=== PATIENT | male | born 1970 | race Caucasian/White ===

== ENCOUNTER → 2020-07-26 | Day surgery (SDC) | payer MEDICARE ==
[2020-07-22 11:32] LABS: BASOPHILS # (AUTO) 0.1 (0.0-0.1); BASOPHILS % 0.9 % (0.0-1.0); EOSINOPHILS # (AUTO) 0.5 (0.0-0.4); EOSINOPHILS % 5.2 % (0.0-6.0); HEMATOCRIT 44.2 % (38.2-49.6); HEMOGLOBIN 15.3 g/dL (14.0-18.0); LYMPHOCYTES # (AUTO) 3.1 (1.0-3.2); LYMPHOCYTES % 36.6 % (18.0-39.1); MEAN CORPUSCULAR HEMOGLOBIN 31.7 pg (28-32); MEAN CORPUSCULAR HGB CONC 34.6 g/dL (31-35); MEAN CORPUSCULAR VOLUME 91.5 fL (81-99); MONOCYTES # (AUTO) 0.8 (0.2-0.8); MONOCYTES % 8.8 % (4.4-11.3); NEUTROPHILS # (AUTO) 4.1 (2.1-6.9); NEUTROPHILS % 48.2 % (38.7-80.0); PLATELET COUNT 287 x10e3/uL (140-360); RED BLOOD COUNT 4.83 x10e6/uL (4.3-5.7)
[~2020-07-26] MED LIST: ALFUZOSIN HCL10 MG PO; ATORVASTATIN CA20 MG PO; B COMPLEX1 EACH PO; BUSPIRONE HCL5 MG PO; CIALIS5 MG PO; CINNAMON500 MG PO; DICYCLOMINE HCL10 MG PO; FAMOTIDINE20 MG PO; FENOFIBRATE145 MG PO; FENTANYL CITRATE/PF 100MCG/2 ML INJ ONE; FINASTERIDE5 MG PO; GENVOYA TABLET1 EACH PO; HYDROXYZINE HCL25 MG PO; JARDIANCE25 MG PO; LIDOCAINE HCL 2% LOCAL INJ 5 ML SDV VIAL INJ ONE; METOPROLOL SUCC50 MG PO; MIDAZOLAM HCL 2 MG/2 ML VIAL ONE; MULTI-VITAMIN1 EACH PO; MYRBETRIQ50 MG PO; NOVOLOG100 UNIT/1 SC; OLMESARTAN-HCT1 EAC1 PO; OMEGA 3 PO; ONDANSETRON HCL 4 MG ORAL DISINTEGRATING TAB ONE; OZEMPIC1 MG/0.75 SC; PINK BISMUTH PO; PROPOFOL IV EMULSION 10 MG/ML 20 ML VIAL ONE; PROZAC40 MG PO; REXULTI1 MG PO; TRAZODONE HCL50 MG PO; TRESIBA FL100 UNIT/1 SQ; VITAMIN B122500 MCG PO; VITAMIN D PO; WELLBUTRIN SR150 MG PO
[2020-07-26 11:40] VITALS: BP 112/65
[2020-07-26 13:43] LABS: WBC,FECAL (FECAL LACTOFERRIN) NEGATIVE (NEGATIVE)
[2020-07-27 15:20] LABS: C DIFFICILE TOXIN A&B AMP PROB NEGATIVE (NEGATIVE)
== END | disposition home or self-care (01) ==
LOC: OR 07:42
PROVIDERS: ATTEND Internal Medicine Gastroenterology
DX: K29.50 Unspecified chronic gastritis without bleeding (principal); D12.2 Benign neoplasm of ascending colon; K29.80 Duodenitis without bleeding; K21.00 Gastro-esophageal reflux disease with esophagitis, without bleeding; K52.9 Noninfective gastroenteritis and colitis, unspecified; K64.8 Other hemorrhoids; K44.9 Diaphragmatic hernia without obstruction or gangrene; K31.89 Other diseases of stomach and duodenum; Z21 Asymptomatic human immunodeficiency virus [HIV] infection status; I11.9 Hypertensive heart disease without heart failure; F41.9 Anxiety disorder, unspecified; F32.9 Major depressive disorder, single episode, unspecified; Z01.810 Encounter for preprocedural cardiovascular examination; Z01.812 Encounter for preprocedural laboratory examination; Z20.828 Contact with and (suspected) exposure to other viral communicable diseases; Z79.4 Long term (current) use of insulin; Z80.0 Family history of malignant neoplasm of digestive organs
CPT/HCPCS: 36415 ×2; 43239; 45380; 45384; 82948; 83630; 83993; 85025; 87045; 87177; 87328; 87493; 88305; 88312; 93005; J2001; J2250; J2704; J3010; Q0162; U0002; 45378

== ENCOUNTER → 2020-12-06 | Day surgery (SDC) | payer MEDICARE ==
[2020-12-01 13:00] LABS: BASOPHILS # (AUTO) 0.1 (0.0-0.1); BASOPHILS % 1.1 % (0.0-1.0); EOSINOPHILS # (AUTO) 0.8 (0.0-0.4); EOSINOPHILS % 11.1 % (0.0-6.0); HEMATOCRIT 40.2 % (38.2-49.6); HEMOGLOBIN 13.9 g/dL (14.0-18.0); LYMPHOCYTES # (AUTO) 2.7 (1.0-3.2); LYMPHOCYTES % 35.4 % (18.0-39.1); MEAN CORPUSCULAR HGB CONC 34.6 g/dL (31-35); MEAN CORPUSCULAR VOLUME 92.6 fL (81-99); MONOCYTES # (AUTO) 0.6 (0.2-0.8); MONOCYTES % 8.1 % (4.4-11.3); NEUTROPHILS # (AUTO) 3.3 (2.1-6.9); PLATELET COUNT 218 x10e3/uL (140-360); RED BLOOD COUNT 4.34 x10e6/uL (4.3-5.7); RED CELL DISTRIBUTION WIDTH 12.3 % (11.7-14.4)
[~2020-12-06] MED LIST changes: -FENTANYL CITRATE/PF 100MCG/2 ML INJ ONE; -LIDOCAINE HCL 2% LOCAL INJ 5 ML SDV VIAL INJ ONE; -MIDAZOLAM HCL 2 MG/2 ML VIAL ONE; -ONDANSETRON HCL 4 MG ORAL DISINTEGRATING TAB ONE; +PROTONIX20 MG PO; +REPATHA SY140 MG/1 M SC; +SOTALOL80 MG PO
[2020-12-06 13:36] VITALS: BP 128/74
== END | disposition home or self-care (01) ==
LOC: OR 11:05
PROVIDERS: ATTEND Internal Medicine Gastroenterology
DX: K20.80 Other esophagitis without bleeding (principal); K31.89 Other diseases of stomach and duodenum; K22.8 Other specified diseases of esophagus; K44.9 Diaphragmatic hernia without obstruction or gangrene; K20.90 Esophagitis, unspecified without bleeding; K21.9 Gastro-esophageal reflux disease without esophagitis; K58.9 Irritable bowel syndrome, unspecified; Z21 Asymptomatic human immunodeficiency virus [HIV] infection status; I11.0 Hypertensive heart disease with heart failure; I50.9 Heart failure, unspecified; I48.91 Unspecified atrial fibrillation; E11.9 Type 2 diabetes mellitus without complications; E66.9 Obesity, unspecified; I44.1 Atrioventricular block, second degree; E78.5 Hyperlipidemia, unspecified; F41.9 Anxiety disorder, unspecified; F32.9 Major depressive disorder, single episode, unspecified; Z88.8 Allergy status to other drugs, medicaments and biological substances; Z01.810 Encounter for preprocedural cardiovascular examination; Z01.812 Encounter for preprocedural laboratory examination; Z20.822 Contact with and (suspected) exposure to COVID-19; Z79.4 Long term (current) use of insulin; Z68.36 Body mass index [BMI] 36.0-36.9, adult; Z95.810 Presence of automatic (implantable) cardiac defibrillator; Z80.0 Family history of malignant neoplasm of digestive organs
CPT/HCPCS: 36415 ×2; 43239; 82948; 85025; 93005; J2704; U0002